=== PATIENT | female | born 1970 | race Caucasian/White ===

== ENCOUNTER 2024-04-21 11:32 | Emergency (ER) | payer OTHER ==
[~2024-04-21] VITALS: Ht 154.9 cm; Wt 63.5 kg
[2024-04-21 12:15] VITALS: PULSE 97; RESP 16; TEMP 98.4; O2SAT 97
[2024-04-21] MEDS ORDERED: LIDOCAINE 1% 10 ML MULTIDOSE VIAL IJ ONE (13:30)
[2024-04-21] MEDS ORDERED: BACTRIM DS TAB1 EACH PO (15:12)
== END 2024-04-21 15:59 | disposition home or self-care (01) ==
LOC: ER 12:27
DX: N63.20 Unspecified lump in the left breast, unspecified quadrant (principal); F17.210 Nicotine dependence, cigarettes, uncomplicated
CPT/HCPCS: 99283